=== PATIENT | male | born 1990 | race Caucasian/White ===

== ENCOUNTER 2019-08-11 10:39 | Emergency (ER) | payer OTHER ==
[~2019-08-11] VITALS: Ht 195.6 cm; Wt 74.8 kg
[2019-08-11] MEDS ORDERED: CELEXA40 MG PO (10:46)
[2019-08-11 11:19] LABS: ABSOLUTE EOSINOPHILS 0.1 thou/uL (0.0-0.7); ABSOLUTE LYMPHOCYTES 0.8 thou/uL (0.8-5.3); ABSOLUTE MONOCYTES 0.8 thou/uL (0.0-1.2); ABSOLUTE NEUTROPHILS 6.3 thou/uL (1.6-8.1); BASOPHILS 0.2 %; HEMATOCRIT 45.9 % (42.0-52.0); HEMOGLOBIN 15.9 gm/dL (14.0-18.0); LYMPHOCYTES 10.4 %; MCH 30.9 pg (26.0-34.0); MCHC 34.6 g/dL (28.0-37.0); MCV 89.4 fL (80.0-100.0); MONOCYTES 10.3 %; MPV 8.3 fl. (7.2-11.1); NUCLEATED RBCS 0 /100WBC; PLATELET COUNT* 223 thou/uL (150-400); POLYS 78.1 %; RBC 5.13 mil/uL (4.50-6.00); RDW-CV 13.1 % (10.5-14.5)
[2019-08-11 11:21] LABS: CALCIUM 9.2 mg/dL (8.5-10.1); CREATININE 0.9 mg/dL (0.6-1.3); POTASSIUM 3.2 mmol/L (3.5-5.1)
[2019-08-11 11:26] LABS: MAGNESIUM 1.7 mg/dL (1.8-2.4); TOTAL BILIRUBIN 0.8 mg/dL (<0.1-1.0)
[2019-08-11 12:18] VITALS: BP 119/86
[2019-08-11] MEDS ORDERED: NEURONTIN 300300 M1 PO (14:24)
--- NOTE | 2019-08-11 16:26 | EKG ---
[place] [address] ELECTROCARDIOGRAM REPORT Name: ANDRÉS ESPINOSA Room: [facility]#: [id number] Admission: 08/11/19 Attend Phys: Discharge: 08/11/19 Date of : 86 Report #: [id number] THIS REPORT FOR: //name// [facility] ED Test Date: 2019-08-11 Test Time: 11:01:42 Pat Name: ANDRÉS ESPINOSA Department: Room: Gender: M [employer] Director: POLLY : 1990 Requested By: Tania Ward Order Number: [id number] MD: Billy Javed Measurements Intervals [place] Rate: 123 P: 51 ME: 177 QRS: 60 QRSD: 79 T: 79 QT: 302 QTc: 432 Interpretive Statements Sinus tachycardia Probable left atrial enlargement Anteroseptal infarct, age indeterminate possible Baseline wander in lead(s) V1 No previous ECG available for comparison Electronically Signed On 08-11-2019 16:26:30 CDT by Billy Javed [email or web address] <ELECTRONICALLY SIGNED> By: Billy Javed MD, [facility] 08/11/19 1626 00 00 Billy Javed MD, FACC /EPI
== END 2019-08-11 12:20 | disposition left against medical advice (07) ==
LOC: M.ERS 10:39
PROVIDERS: Personal Emergency Response Attendant
DX: F15.10 Other stimulant abuse, uncomplicated (principal); F41.9 Anxiety disorder, unspecified; F32.9 Major depressive disorder, single episode, unspecified

== ENCOUNTER 2019-08-11 13:06 | Emergency (ER) | payer OTHER ==
[~2019-08-11] VITALS: Ht 195.6 cm; Wt 74.8 kg
[~2019-08-11 13:06] MED LIST: CELEXA40 MG PO
[2019-08-11] MEDS ORDERED: NEURONTIN 300300 M1 PO (14:24)
[2019-08-11 17:48] VITALS: BP 138/79
--- NOTE | 2019-08-12 09:27 | NUR ---
LATE ENTRY: NOEL RECEIVED A VM, ON MAIN LINE, FROM PTS FATHER ABOUT 1600 08/11 ASKING IF CM HAD ANY RESOURCES FOR HIS SON THAT NEEDED INPT.PLACEMENT FOR [facility] ADDICTION. HE SAID SON WAS CURRENTLY IN ED. CM CALLED ED AND SPOKE WITH . SHE SAID THEY HAD A CALL INTO [facility] TO CHECK ON THEIR BED AVAILABILITY. SHE ALSO SAID IF THEY CANNOT ACCEPT PT.,HE WOULD BE GIVEN RESOURCE INFORMATION ON DETOX/ADDICTION PROGRAMS IN ED. NOEL DID NOT RETURN FATHERS PHONE CALL PT.STILL IN ED,IS 28 Y.O. AND ABLE TO MAKE OWN DECISIONS.
== END 2019-08-11 17:48 | disposition home or self-care (01) ==
LOC: M.ERS 13:06
DX: F15.10 Other stimulant abuse, uncomplicated (principal); F17.210 Nicotine dependence, cigarettes, uncomplicated; F32.9 Major depressive disorder, single episode, unspecified; F41.9 Anxiety disorder, unspecified

== ENCOUNTER 2020-04-26 13:36 | Emergency (ER) | payer OTHER ==
[~2020-04-26] VITALS: Ht 195.6 cm; Wt 81.7 kg
[~2020-04-26 13:36] MED LIST changes: +NEURONTIN 300300 M1 PO
[2020-04-26] MEDS ORDERED: AMOXICILLIN 50500 MG PO (14:10)
[2020-04-26 14:23] VITALS: BP 135/70
== END 2020-04-26 14:25 | disposition home or self-care (01) ==
LOC: M.ERS 13:36
DX: K08.89 Other specified disorders of teeth and supporting structures (principal); Z79.899 Other long term (current) drug therapy

== ENCOUNTER 2020-06-13 16:02 | Emergency (ER) | payer MEDICAID ==
[~2020-06-13] VITALS: Ht 195.6 cm; Wt 81.4 kg
[~2020-06-13 16:02] MED LIST changes: +AMOXICILLIN 50500 MG PO
[2020-06-13 16:53] LABS: ABSOLUTE EOSINOPHILS 0.1 thou/uL (0.0-0.7); ABSOLUTE LYMPHOCYTES 1.3 thou/uL (0.8-5.3); ABSOLUTE MONOCYTES 0.4 thou/uL (0.0-1.2); ABSOLUTE NEUTROPHILS 4.1 thou/uL (1.6-8.1); BASOPHILS 0.4 %; EOSINOPHILS 0.9 %; HEMATOCRIT 44.4 % (42.0-52.0); HEMOGLOBIN 15.1 gm/dL (14.0-18.0); LYMPHOCYTES 21.9 %; MCH 30.5 pg (26.0-34.0); MCHC 34.1 g/dL (28.0-37.0); MCV 89.5 fL (80.0-100.0); MONOCYTES 6.6 %; MPV 8.1 fl. (7.2-11.1); NUCLEATED RBCS 0 /100WBC; PLATELET COUNT* 167 thou/uL (150-400); POLYS 70.2 %; RBC 4.96 mil/uL (4.50-6.00); RDW-CV 13.7 % (10.5-14.5); WBC 5.9 thou/uL (4.0-11.0)
[2020-06-13 17:01] LABS: URINE BILIRUBIN NEGATIVE (Negative); URINE BLOOD NEGATIVE (Negative); URINE CLARITY CLEAR; URINE COLOR YELLOW; URINE GLUCOSE-RANDOM NEGATIVE (Negative); URINE KETONES 1+ (Negative); URINE LEUKOCYTES NEGATIVE (Negative); URINE NITRITE NEGATIVE (Negative); URINE PROTEIN NEGATIVE (Negative); URINE UROBILINOGEN 0.2 E.U./dl (0.2-1.0)
[2020-06-13 17:02] LABS: CREATININE 0.9 mg/dL (0.6-1.3); POTASSIUM 3.6 mmol/L (3.5-5.1)
[2020-06-13 17:06] LABS: ALBUMIN 4.3 g/dL (3.4-5.0); TOTAL BILIRUBIN 0.5 mg/dL (<0.1-1.0); TOTAL PROTEIN 7.2 g/dL (6.4-8.2)
[2020-06-13 17:08] LABS: AMP/METHAMP Negative (Negative); BARBITURATES Negative (Negative); BENZODIAZEPINES Negative (Negative); COCAINE Negative (Negative); METHADONE Negative (Negative); OPIATES Negative (Negative); PCP Negative (Negative); THC Negative (Negative)
[2020-06-13 17:10] LABS: CALCIUM 9.2 mg/dL (8.5-10.1)
[2020-06-13] MEDS ORDERED: NEURONTIN 400M400 M2 PO (19:17)
[2020-06-13 19:48] VITALS: BP 140/84
== END 2020-06-13 20:38 | disposition home or self-care (01) ==
LOC: M.ERS 16:02
PROVIDERS: Physician Assistant
DX: F10.129 Alcohol abuse with intoxication, unspecified (principal); Y90.8 Blood alcohol level of 240 mg/100 ml or more; F41.9 Anxiety disorder, unspecified; F32.9 Major depressive disorder, single episode, unspecified; Z79.899 Other long term (current) drug therapy

== ENCOUNTER 2021-08-06 13:16 | Emergency (ER) | payer MEDICAID ==
[~2021-08-06] VITALS: Ht 195.6 cm; Wt 83.9 kg
[~2021-08-06 13:16] MED LIST changes: +NEURONTIN 400M400 M2 PO
[2021-08-06] MEDS ORDERED: ANUSOL-HC30 GM TOP (14:34)
[2021-08-06 15:12] VITALS: BP 102/58
== END 2021-08-06 15:13 | disposition home or self-care (01) ==
LOC: M.ERS 13:16
DX: K64.5 Perianal venous thrombosis (principal); F41.9 Anxiety disorder, unspecified; F32.9 Major depressive disorder, single episode, unspecified; F17.210 Nicotine dependence, cigarettes, uncomplicated

== ENCOUNTER → 2021-09-02 | Outpatient (CLI) | payer MEDICAID ==
[~2021-09-02] MED LIST changes: +ANUSOL-HC30 GM TOP
== END ==
LOC: M.RAD 16:04
PROVIDERS: ATTEND Orthopaedic Surgery
DX: M25.461 Effusion, right knee (principal); M76.52 Patellar tendinitis, left knee

== ENCOUNTER → 2021-09-27 | Outpatient (CLI) | payer MEDICAID | LOC: M.MRI 09-22 13:30 | PROVIDERS: ATTEND Orthopaedic Surgery | DX: S83.203A Other tear of unspecified meniscus, current injury, right knee, initial encounter (principal); M25.461 Effusion, right knee; M25.861 Other specified joint disorders, right knee; M23.91 Unspecified internal derangement of right knee; X58.XXXA Exposure to other specified factors, initial encounter; Y93.89 Activity, other specified; Y92.89 Other specified places as the place of occurrence of the external cause; Y99.8 Other external cause status ==

== ENCOUNTER → 2021-11-08 | Outpatient (CLI) | payer MEDICAID | LOC: M.LAB 15:33 | PROVIDERS: ATTEND Orthopaedic Surgery | DX: Z01.812 Encounter for preprocedural laboratory examination (principal); Z20.822 Contact with and (suspected) exposure to COVID-19 ==